=== PATIENT | male | born 1990 | race Two or more races ===

== ENCOUNTER 2024-08-17 17:40 | Emergency (ER) | payer MEDICAID, OTHER ==
[~2024-08-17] VITALS: Ht 198.1 cm; Wt 72.0 kg
[2024-08-17] MEDS ORDERED: AMOX500C2 PO (18:08)
[2024-08-17] MEDS: cefTRIAXone SOD 1,000 MG VL IM ONE (18:43)
[2024-08-17 18:54] VITALS: BP 146/87; PULSE 106; RESP 18; TEMP 99.6; O2SAT 97
== END 2024-08-17 18:57 | disposition home or self-care (01) ==
LOC: ER 17:40
DX: J03.90 Acute tonsillitis, unspecified (principal); F17.210 Nicotine dependence, cigarettes, uncomplicated
CPT/HCPCS: 96372; 99283; J0696